=== PATIENT | male | born 1975 | race Caucasian/White ===

== ENCOUNTER 2021-08-03 00:25 | Day surgery (SDC) | payer OTHER, SELFPAY ==
[2021-08-03 08:21] VITALS: BP 138/91; PULSE 72; RESP 16; TEMP 35.8; O2SAT 99; BMI 29.3
--- NOTE | 2021-08-03 08:41 | P.PNAN_ITS ---
Anes - Initial Pre Proc Eval Procedure: Operation Date: 08/03/21 09:00 Proposed Procedures p Screening Colonoscopy - Caden Merlos MD Date/Time: 08/03/21 08:41 Surgeon: Caden Merlos MD Pre Op Diagnosis: neoplasm screening Patient Data Age: 46 Gender: M Height: 1.8 m Weight: 95.5 kg Last Vital Signs Temp 35.8 C L 08/03/21 08:21 Pulse 72 08/03/21 08:21 Resp 16 08/03/21 08:21 BP 138/91 H 08/03/21 08:21 Pulse Ox 99 08/03/21 08:21 Allergies Allergy/AdvReac Type Severity Reaction Status Date / Time No Known Allergies Allergy Verified 08/03/21 08:20 Home Medications Medication Instructions Recorded Confirmed Type lisinopril 20 mg PO DAILY 07/22/21 08/03/21 History Patient hx anesthesia problems: none Family hx anesthesia problems: none Results Review: All pre-operative results and documents have been reviewed as part of the pre-operative evaluation. [facility] Past Medical History Medical History (Updated 08/03/21 @ 08:43 by Tc Ferrell MD) HTN (hypertension) Anes - Eval Final PreProcedure Day of Procedure 08/03/21 08:41 Patient weight: normal Heart: regular rate and rhythm Lungs: clear to auscultation Airway: Mallampati scale class 1 Neurological: alert and oriented Last oral intake: >/= 8 hours ASA classification: II Emergent: no Anesthetic plan: proceed Anesthesia type and monitoring: general GIVS and standard monitoring Results Review: All pre-operative results and documents have been reviewed as part of the pre-operative evaluation. Informed Consent: The patient's anesthetic plan and its attendant risks and benefits were discussed with the patient/family/POA. Questions were solicited and answers provided to the satisfaction of the patient/family/POA.
--- NOTE | 2021-08-03 08:52 | P.CONGI_ITS ---
Assessment and Plan Assessment and plan (1) Encounter for screening colonoscopy: Code(s): Z12.11 - Encounter for screening for malignant neoplasm of colon Status: Acute Assessment and Plan: Patient presents for screening colonoscopy. Appears to be at average risk for colon polyps. GI Consult Note Consult date/time: 08/03/21 08:52 HPI: Saul Lyons is a 46 year old male Presents for screening colonoscopy. Patient reports his current weight appetite and bowel movements are normal. He denies abdominal pain. He has had no bleeding. Family history is noncontributory. Patient presents today for screening colonoscopy. Review of Systems Review of Systems: All systems reviewed & are unremarkable except as noted in HPI and below PMFSH Past Medical History Medical History (Updated 08/03/21 @ 08:53 by Caden Merlos MD) HTN (hypertension) Meds Home Medications and Allergies Home Medications Medication Instructions Recorded Confirmed Type lisinopril 20 mg PO DAILY 07/22/21 08/03/21 History Allergies Allergy/AdvReac Type Severity Reaction Status Date / Time No Known Allergies Allergy Verified 08/03/21 08:20 Vital Signs Vital Signs - 24 hr 08/03/21 08:21 Temperature 96.4 F L Pulse Rate 72 Respiratory Rate 16 Blood Pressure 138/91 H Pulse Oximetry 99 Exam Narrative: Physical exam reveals patient be alert. Vital signs stable. HEENT exam is unremarkable. Patient is anicteric. Lungs are clear to auscu ltation and percussion. Heart is without murmur or extra sounds. Abdominal exam bowel sounds are present soft nontender with no hepatosplenomegaly. Digital external rectal exam is normal.
[2021-08-03] MEDS: LACTATED RINGERS 1,000 ML 30 ML IV CONT (09:18)
[2021-08-03 09:20] VITALS: BP 129/83; PULSE 67; RESP 15; O2SAT 99
[2021-08-03 09:30] VITALS: BP 122/83; PULSE 65; RESP 22; O2SAT 100
== END 2021-08-03 09:45 | disposition home or self-care (01) ==
PROVIDERS: Visit Provider Internal Medicine Gastroenterology
PROC: 0DJD8ZZ Inspection of Lower Intestinal Tract, Via Natural or Artificial Opening Endoscopic (ICD-10-PCS; CPT 45378; principal; 2021-08-03 09:00)
DX: Z12.11 Encounter for screening for malignant neoplasm of colon (principal); K64.8 Other hemorrhoids; I10 Essential (primary) hypertension
CPT/HCPCS: 45378; J2001; J2704; J7120